=== PATIENT | male | born 1990 | race Hispanic/Latino ===

== ENCOUNTER 2020-12-16 12:55 | Emergency (ER) | payer OTHER ==
--- NOTE | 2020-12-16 15:09 | RAD REPORT ---
EXAM DESCRIPTION: RAD - Knee Right 3 View - 12/16/2020 2:45 pm CLINICAL HISTORY: PAIN, fall with persistent knee pain COMPARISON: None FINDINGS: No fracture, dislocation or periosteal reaction.No joint effusion seen. No joint space woody rowing. Bones are osteopenic. Degenerative change seen along the articular margin of the patella. No suspicious soft tissue finding. IMPRESSION: Osteopenia of the right knee with no acute bone or joint finding. Clinical concerns for internal derangement or occult bony injury could be further assessed with MR im aging.
--- NOTE | 2020-12-16 15:11 | RAD REPORT ---
EXAM DESCRIPTION: RAD - Hip Right 2 View - 12/16/2020 2:45 pm CLINICAL HISTORY: PAIN, fall COMPARISON: No comparisons FINDINGS: AP and frog-leg views of the right hip were obtained. Partially imaged right nadya pelvis is osteopenic for the patient's age. No fracture identified. Fracture is present through the base of the right femoral neck with involvement of the intertrochante benson region. Fracture at the superior aspect of the greater trochanter is also suspected. No dislocati on of the femoral head. Lesser trochanter remains attached to the femur. Femur is osteopenic for age but no pathologic change seen. IMPRESSION: Right femur fracture as detailed.
[2020-12-16 16:21] LABS: Protime INR 1.19
--- NOTE | 2020-12-16 16:27 | RAD REPORT ---
EXAM DESCRIPTION: CT - CTHCSPWOC - 12/16/2020 4:07 pm CLINICAL HISTORY: Fall COMPARISON: <Comparisons> TECHNIQUE: Axial 5 mm thick images of the head were obtained. Axial 2 mm thick images of the cervic al spine were obtained with sagittal and coronal reconstruction images generated and reviewed. All CT scans are performed using dose optimization technique as appropriate and may include automated exposure control or mA/KV adjustment according to patient size. FINDINGS: Exam has significant motion degradation limitation. No intracranial hemorrhage is identifi able. No focal mass effect, edema or shift of midline structures. Ventriculomegaly is present. There is no baseline for the patient. Transependymal migration of CSF not suspected. Ventriculomegaly is pr esumed to be chronic. Mastoid air cells and paranasal sinuses are clear. No globe or orbit abnormalit y seen. Cervical body height and alignment are normal. Positioning of the C1 ring relative to the occipital c ondyles body of C2 within range of normal. 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 No disk space narrowing. No fracture or acute bony abnormality. Central canal detail is inherently limited. No paraspinal mass or hematoma. IMPRESSION: Motion degraded study shows no evidence for intracranial hemorrhage mass or acute findin g. Ventriculomegaly is present believed to be chronic. There are no baseline studies. Negative CT cervical spine examination for acute or significant finding.
[2020-12-16 16:31] LABS: ALT/SGPT 14 U/L (12-78); AST/SGOT 15 U/L (15-37); Albumin 3.9 g/dL (3.4-5.0); Alkaline Phosphatase 119 U/L (45-117); BUN Blood Urea Nitrogen 25 mg/dL (7-18); Bicarbonate 28 mmol/L (21-32); Bilirubin Total 0.3 mg/dL (0.2-1.0); Glucose Level 106 mg/dL (74-106); Potassium 4.4 mmol/L (3.5-5.1); Protein, Total 8.7 g/dL (6.4-8.2); Sodium Level 142 mmol/L (136-145)
[2020-12-16 16:36] LABS: Absolute Lymphocytes (CBC) 1.2 K/uL (0.7-4.9); Basophils % 0.3 % (0-1.3); Hematocrit 35.5 % (39.6-49.0); Lymphocytes % 14.5 % (15.3-44.8); MPV 8.5 fL (7.6-11.3)
--- NOTE | 2020-12-16 16:47 | ER ---
Nurse's Notes [facility] Name: Lazaro Babcock Age: 30 yrs Sex: Male : 1990 Arrival Date: 12/16/2020 Time: 12:58 Bed 14 Private MD: Diagnosis: Right hip fracture Presentation: 12/16 13:09 Chief complaint: Patient states: Fell about 4 days ago. RUE pain since and cant move ll1 well. L leg slight trauma. No fever. Mom noticed R leg feels hotter. No fever. Coronavirus screen: Client denies travel out of the [place] in the last 14 days. At this time, the client does not indicate any symptoms associated with coronavirus-19. Ebola Screen: Patient denies travel to an Ebola-affected area in the 21 days before illness onset. Initial Sepsis Screen: Does the patient meet any 2 criteria? No. Patient's initial sepsis screen is negative. Does the patient have a suspected source of infection? Yes: Bone or joint infection. Risk Assessment: Do you want to hurt yourself or someone else? Patient reports no desire to harm self or others. Onset of symptoms was December 13, 2020. 13:09 Method Of Arrival: Wheelchair ll1 13:09 Acuity: SHERYL 3 ll1 Historical: - Allergies: 13:12 No Known Allergies; ll1 - PMHx: 13:12 epilepsy; Bipolar disorder; ll1 17:06 mental retardation; sv - PSHx: 13:12 Hernia repair; ll1 - Immunization history:: Flu vaccine is not up to date. - Social history:: Smoking status: Patient denies any tobacco usage or history of. Screenin:27 Abuse screen: Denies threats or abuse. Nutritional screening: No deficits noted. vg1 Tuberculosis screening: No symptoms or risk factors identified. Fall Risk Fall in past 12 months (25 points). No secondary diagnosis (0 pts). No IV (0 pts). Ambulatory Aid- None/Bed Rest/Nurse Assist (0 pts). Gait- Impaired (20 pts.). Mental Status- Oriented to own ability (0 pts). Total Moody Fall Scale indicates High Risk Score (45 or more points). Fall prevention measures have been instituted. Side Rails Up X 2 Placed Close to Nursing Station Family Present and informed to notify staff if the need to leave the bedside. Assessment: 13:25 General: Appears in no apparent distress. comfortable. General: Behavior is anxious. vg1 Pain: Complains of pain in right knee Noted to be guarding. Neuro: Level of Consciousness is awake, alert, Oriented to person. Cardiovascular: Patient's skin is warm and dry. Respiratory: Airway is patent Respiratory effort is even, unlabored. GI: No signs and/or symptoms were reported involving the gastrointestinal system. : No signs and/or symptoms were reported regarding the genitourinary system. EENT: No signs and/or symptoms were reported regarding the EENT system. Derm: Skin is intact, is healthy with good turgor. Musculoskeletal: Range of motion: limited in right knee. 14:08 Reassessment: Patient appears in no apparent distress at this time. No changes from vg1 previously documented assessment. Patient and/or family updated on plan of care and expected duration. Pain level reassessed. Patient is alert, oriented x 3, equal unlabored respirations, skin warm/dry/pink. 15:57 Reassessment: Patient appears in no apparent distress at this time. No changes from vg1 previously documented assessment. Patient and/or family updated on plan of care and expected duration. Pain level reassessed. Patient is alert, oriented x 3, equal unlabored respirations, skin warm/dry/pink. 17:46 Reassessment: Patient appears in no apparent distress at this time. No changes from vg1 previously documented assessment. Patient and/or family updated on plan of care and expected duration. Pain level reassessed. Patient is alert, oriented x 3, equal unlabored respirations, skin warm/dry/pink. Cardiovascular: Capillary refill < 3 seconds in bilateral toes. Vital Signs: 13:09 BP 132 / 104; Pulse 88; Resp 16; Temp 97.2; Pulse Ox 95% ; Weight 52.62 kg; Pain 8/10; ll1 14:08 BP 107 / 72; vg1 17:37 BP 99 / 59; vg1 Roopa Coma Score: 17:46 Eye Response: spontaneous(4). Verbal Response: oriented(5). Motor Response: obeys vg1 commands(6). Total: 15. ED Course: 12:58 Patient arrived in ED. ds1 13:11 Triage completed. ll1 13:12 Arm band placed on Patient placed in an exam room, on a stretcher. ll1 13:13 Efraín Alexandre NP is PHCP. pm1 13:13 Alfonso Soliz MD is Attending Physician. pm1 13:19 Aileen Arvizu, RN is Primary Nurse. vg1 13:27 Patient has correct armband on for positive identification. Bed in low position. Call vg1 light in reach. Side rails up X2. Adult w/ patient. 13:58 X-ray(s) taken. sv 14:46 Hip Right 2 View XRAY In Process Unspecified. EDMS 14:46 Knee Right 3 View XRAY In Process Unspecified. EDMS 15:57 Initial lab(s) drawn, by la, sent to lab. Inserted saline lock: 20 gauge in left vg1 antecubital area, using aseptic technique. Blood collected. 15:57 COVID swab sent to lab. vg1 16:07 CT Head C Spine In Process Unspecified. EDMS 17:45 No provider procedures requiring assistance completed. Patient transferred, IV remains vg1 in place. Administered Medications: 17:37 Drug: NS 0.9% 1000 ml Route: IV; Rate: 125 ml/hr; Site: left antecubital; vg1 18:25 Follow up: IV Status: Infusion continued upon transfer vg1 Outcome: 16:46 ER care complete, transfer ordered by . pm1 17:46 Transferred to [facility]. vg1 17:46 Condition: stable 17:46 Instructed on the need for transfer. 18:25 Patient left the ED. vg1 Signatures: Dispatcher [employer] EDMS Carlie Ramsey RN RN Bri Jones ds1 Efraín Alexandre NP COATING TECHNICIAN pm1 Aileen Arvizu RN RN vg1 Drew Swift RN RN ll1 Corrections: (The following items were deleted from the chart) 17:07 13:12 PMHx: mental retard; ll1 sv
--- NOTE | 2020-12-16 16:47 | EDPHYS ---
Physician Documentation [facility] Name: Lazaro Babcock Age: 30 yrs Sex: Male : 1990 Arrival Date: 12/16/2020 Time: 12:58 Bed 14 Private MD: ED Physician Alfonso Soliz HPI: 12/16 13:28 This 30 yrs old Male presents to ER via Wheelchair with complaints of Leg Pain, Fall pm1 Injury. 13:28 The patient presents with pain, that is acute. The complaints affect the right leg. pm1 Context: The problem was sustained at home, resulted from the patient falling, prior to two weeks ago patient was walking by himself. he had a fall and was evaluated at [facility]. Discharged home with ibuprofen. After that fall he was walking with assist from family. He fell again 4 days ago and has not wanted to bear weight with his right leg since then. He standing up from the couch, lost his balance and then fell over to the right side. Family thinks that it might be his right knee or right lower thigh since there was a bruise there previously. Onset: The symptoms/episode began/occurred 4 day(s) ago. Historical: - Allergies: 13:12 No Known Allergies; ll1 - PMHx: 13:12 epilepsy; Bipolar disorder; ll1 17:06 mental retardation; sv - PSHx: 13:12 Hernia repair; ll1 - Immunization history:: Flu vaccine is not up to date. - Social history:: Smoking status: Patient denies any tobacco usage or history of. ROS: 13:32 Constitutional: Negative for fever, chills, and weight loss, Eyes: Negative for injury, pm1 pain, redness, and discharge, ENT: Negative for injury, pain, and discharge, Neck: Negative for injury, pain, and swelling, Cardiovascular: Negative for chest pain, palpitations, and edema, Respiratory: Negative for shortness of breath, cough, wheezing, and pleuritic chest pain, Abdomen/GI: Negative for abdominal pain, nausea, vomiting, diarrhea, and constipation, Back: Negative for injury and pain. 13:32 Skin: Negative for injury, rash, and discoloration, Neuro: Negative for headache, weakness, numbness, tingling, and seizure. 13:32 MS/extremity: Positive for pain, of the right knee, Not applying weight to right leg. 13:32 Unable to obtain ROS due to baseline mental retardation. Information obtained from mother and brother. Exam: 13:32 Constitutional: This is a well developed, well nourished patient who is awake, alert, pm1 and in no acute distress. Head/Face: Normocephalic, atraumatic. 13:32 Chest/axilla: Normal chest wall appearance and motion. Nontender with no deformity. No lesions are appreciated. 13:32 Back: No spinal tenderness. No costovertebral tenderness Skin: Warm, dry with normal turgor. Normal color with no rashes, no lesions, and no evidence of cellulitis. 13:32 Eyes: Exam is negative for acute changes, Periorbital structures: appear normal, Pupils: no acute changes, Extraocular movements: intact throughout, Conjunctiva: normal, Sclera: no appreciated abnormality. 13:32 ENT: Mouth: Lips: normal, Oral mucosa: normal, pink and intact, moist. 13:32 Neck: External neck: is normal, no swelling, no tenderness, ROM/movement: no acute changes. 13:32 Cardiovascular: Rate: normal, Rhythm: regular, Pulses: no pulse deficits are appreciated, Edema: is not appreciated. 13:32 Respiratory: Exam negative for acute changes, respiratory distress, shortness of breath, Breath sounds: are clear throughout. 13:32 Abdomen/GI: Inspection: abdomen appears normal, Palpation: abdomen is soft and non-tender, in all quadrants. 13:32 Musculoskeletal/extremity: Extremities: grossly normal except: noted in the tenderness to right hip and right knee: patient does not want to extend his right leg, Circulation is intact in all extremities. Sensation intact. 13:32 Neuro: Orientation: baseline per mother and brother in room, Motor: moves all fours. Vital Signs: 13:09 BP 132 / 104; Pulse 88; Resp 16; Temp 97.2; Pulse Ox 95% ; Weight 52.62 kg; Pain 8/10; ll1 14:08 BP 107 / 72; vg1 17:37 BP 99 / 59; vg1 Roopa Coma Score: 17:46 Eye Response: spontaneous(4). Verbal Response: oriented(5). Motor Response: obeys vg1 commands(6). Total: 15. MDM: 13:15 Patient medically screened. pm1 15:24 Data reviewed: vital signs. Data interpreted: Pulse oximetry: on room air is 95 %. pm1 Interpretation:. 15:25 Counseling: I had a detailed discussion with the patient and/or guardian regarding: the pm1 historical points, exam findings, and any diagnostic results supporting the discharge/admit diagnosis, radiology results, the need to transfer to another facility, [facility] does not immediately have the required specialist, No orthopedics available. 17:13 ED course: Accepted without report by Kedar KURTZ. pm1 17:14 ED course: Last PO intake for patient at 1000 today. pm1 12/16 15:26 Order name: CBC with Diff; Complete Time: 16:40 pm1 12/16 15:26 Order name: CMP; Complete Time: 16:40 pm1 12/16 15:28 Order name: Valproic Acid (depakote) pm1 12/16 15:28 Order name: Tegretol Level pm1 12/16 15:30 Order name: Valproic Acid (Depakene) Level; Complete Time: 16:40 EDMS 12/16 15:30 Order name: Carbamazepine (Tegretol) Level; Complete Time: 16:40 EDMS 12/16 13:22 Order name: Hip Right 2 View XRAY; Complete Time: 15:24 pm1 12/16 13:22 Order name: Knee Right 3 View XRAY; Complete Time: 15:24 pm1 12/16 15:33 Order name: PT-INR; Complete Time: 16:40 pm1 12/16 15:36 Order name: CT Head C Spine; Complete Time: 16:40 pm1 12/16 15:37 Order name: COVID-19 : Document "Date of Symptom Onset" if Symptomatic. pm1 12/16 18:21 Order name: SARS-COV-2 RT PCR EDMS 12/16 15:26 Order name: IV Saline Lock; Complete Time: 15:57 pm1 12/16 17:14 Order name: NPO; Complete Time: 17:22 pm1 Administered Medications: 17:37 Drug: NS 0.9% 1000 ml Route: IV; Rate: 125 ml/hr; Site: left antecubital; 1 18:25 Follow up: IV Status: Infusion continued upon transfer vg1 Disposition: 18:54 Co-signature as Attending Physician, Alfonso Soliz MD. rn Disposition: 12/16/20 16:46 Transfer ordered to [facility]. Diagnosis is Right hip fracture. - Reason for transfer: Specialty. - Accepting physician is Kedar KURTZ. - Condition is Stable. - Problem is new. - Symptoms have improved. Signatures: Dispatcher [employer] EDNE Carlie Ramsey, RN RN Alfonso Navarro MD MD rn Efraín Alexandre, FINANCE VICE PRESIDENT FINANCE VICE PRESIDENT pm1 Aileen Arvizu RN RN vg1 Drew Swift RN RN ll1 Corrections: (The following items were deleted from the chart) 17:07 13:12 PMHx: mental retard; ll1 sv 17:30 15:37 CORONAVIRUS ordered. EDNE EDMS 17:49 16:46 12/16/2020 16:46 Transfer ordered to [facility]. Diagnosis is Right pm1 hip fracture. Reason for transfer: Specialty. Accepting physician is . Condition is Stable. Problem is new. Symptoms have improved. pm1 18:25 17:49 12/16/2020 16:46 Transfer ordered to [facility]. Diagnosis is Right vg1 hip fracture. Reason for transfer: Specialty. Accepting physician is Kedar KURTZ. Condition is Stable. Problem is new. Symptoms have improved. pm1
[2020-12-16] MEDS ORDERED: NA CHLORIDE 0.9% 1,000 ML ONE (17:45)
[2020-12-16 18:34] VITALS: TEMP 97.2; O2SAT 95
[2020-12-16 18:36] VITALS: BP 99/59
== END 2020-12-16 18:25 | disposition short-term general hospital (02) ==
LOC: ER 12:55
DX: S72.001A Fracture of unspecified part of neck of right femur, initial encounter for closed fracture (principal); F79 Unspecified intellectual disabilities; W19.XXXA Unspecified fall, initial encounter; Y93.01 Activity, walking, marching and hiking; Z20.822 Contact with and (suspected) exposure to COVID-19
CPT/HCPCS: 85025; 36415; 80156; 85610; 80164; 80053; 70450; 72125; 73502; 73562; 96360; 99285; U0003; J7030

== ENCOUNTER 2024-08-07 10:12 | Emergency (ER) | payer OTHER ==
--- NOTE | 2024-08-07 11:27 | RAD REPORT ---
EXAMINATION: XR PELVIS CLINICAL INDICATION: fall;Blunt trauma TECHNIQUE: AP Pelvis examination was obtained. COMPARISON: No prior exam. FINDINGS: Hardware is present proximal right femur. Diffuse osteopenia. No acute fracture seen. Signi ficant stool burden in the rectum.
--- NOTE | 2024-08-07 11:28 | RAD REPORT ---
EXAMINATION: XR LEFT FEMUR CLINICAL INDICATION: . PAIN TECHNIQUE: Multiple views of the left femur were obtained. COMPARISON: No prior exam. FINDINGS: Diffuse osteopenia seen. No acute fracture or dislocation seen.
--- NOTE | 2024-08-07 11:33 | ER ---
Nurse's Notes [facility] Name: Lazaro Babcock Age: 34 yrs Sex: Male : 1990 Arrival Date: 08/07/2024 Time: 10:12 Bed 7 Private MD: Diagnosis: Contusion of left hip;Contusion of left thigh Presentation: 08/07 10:29 Chief complaint: Parent and/or Guardian states: Left leg pain s/p fall. per brother, pt cm10 unable to bear weight on left leg. Coronavirus screen: Client denies travel out of the [place] in the last 14 days. Ebola Screen: Patient denies travel to an Ebola-affected area in the 21 days before illness onset. Initial Sepsis Screen: Does the patient meet any 2 criteria? No. Patient's initial sepsis screen is negative. Does the patient have a suspected source of infection? No. Patient's initial sepsis screen is negative. Risk Assessment: Do you want to hurt yourself or someone else? Patient reports no desire to harm self or others. Onset of symptoms was August 07, 2024. 10:29 Method Of Arrival: Wheelchair cm10 10:29 Acuity: SHERYL 4 cm10 10:39 Care prior to arrival: None. Mechanism of Injury: Fall. Trauma event details: Injury ll1 occurred in the [facility]. Triage Assessment: 10:32 General: Appears in no apparent distress. uncomfortable, Behavior is calm, cooperative. cm10 Neuro: No deficits noted. Level of Consciousness is awake, alert. Respiratory: No deficits noted. Airway is patent Respiratory effort is even, unlabored, Respiratory pattern is regular, symmetrical. Trauma Activation: Not Applicable Physician: ED Physician; Name: ; Notified At: ; Arrived At: Physician: General Surgeon; Name: ; Notified At: ; Arrived At: Physician: Radiology; Name: ; Notified At: ; Arrived At: Physician: Respiratory; Name: ; Notified At: ; Arrived At: Physician: Lab; Name: ; Notified At: ; Arrived At: Historical: - Allergies: 10:30 No Known Allergies; cm10 - Home Meds: 10:30 Tegretol Oral [Active]; Ativan Oral [Active]; Depakote Oral [Active]; Risperdal Oral cm10 [Active]; - PMHx: 10:30 Bipolar disorder; epilepsy; mental retardation; cm10 - PSHx: 10:30 inguinal hernia; Leg sx; cm10 - Immunization history:: Adult Immunizations unknown. - Infectious Disease History:: Denies. - Immunization history: Last tetanus immunization: - up to date. - Family history:: not pertinent. - Social history:: Smoking status: Patient denies any tobacco usage or history of. - Hospitalizations: : No recent hospitalization is reported. Screenin:38 [facility] ED Fall Risk Assessment (Adult) History of falling in the last 3 months, ll1 including since admission Yes- single mechanical fall (1 pt) Confusion or Disorientation No (0 pts) Intoxicated or Sedated No (0 pts) Impaired Gait Yes (1 pt) Mobility Assist Device Used Yes (1 pt) Altered Elimination Yes (1 pt) Score/Fall Risk Level 3 or more points = High Risk Maintained a safe environment, Hourly rounding (assess needs \T\ fall precautionary measures) done. Abuse screen: Denies threats or abuse. Nutritional screening: No deficits noted. Tuberculosis screening: No symptoms or risk factors identified. Primary Survey: 10:38 NO uncontrolled hemorrhage observed. A: The client is awake and alert. The airway is ll1 patent. Breathing/Chest: Spontaneous respiratory effort, equal unlabored respirations, breath sounds clear bilaterally, regular pattern, symmetrical chest rise and fall. Circulation: No external hemorrhage present. Regular and strong central pulse, skin warm/dry/normal color. Disability Client is alert. Exposure/Environment: There is no evidence of uncontrolled external bleeding. 11:33 Reassessment Breathing: Spontaneous respiratory effort, equal unlabored respirations, ll1 breath sounds clear bilaterally, regular pattern with symmetrical chest rise and fall. Assessment: 10:38 General: Appears in no apparent distress. Behavior is calm, cooperative, appropriate ll1 for age. Pain: Complains of pain in left leg. Musculoskeletal: Reports pain in left leg. 11:33 Reassessment: No changes from previously documented assessment. Patient and/or family ll1 updated on plan of care and expected duration. Pain level reassessed. Patient is alert, oriented x 3, equal unlabored respirations, skin warm/dry/pink. Vital Signs: 10:29 BP 89 / 65; Pulse 85; Resp 17; Temp 98.2(A); Pulse Ox 99% on R/A; Weight 52.16 kg; cm10 Height 5 ft. 6 in. ; 10:40 BP 97 / 67; Pulse 82; Resp 18; Pulse Ox 100% on R/A; ll1 11:30 BP 96 / 69; Pulse 82; Resp 18; Pulse Ox 100% ; ll1 10:29 Body Mass Index 18.56 (52.16 kg, 167.64 cm) cm10 [place] Coma Score: 10:39 Eye Response: spontaneous(4). Motor Response: obeys commands(6). Verbal Response: ll1 oriented(5). Total: 15. Trauma Score (Adult): 10:39 Eye Response: spontaneous(1); Verbal Response: oriented(1); Motor Response: obeys ll1 commands(2); Systolic BP: > 89 mm Hg(4); Respiratory Rate: 10 to 29 per min(4); [place] Score: 15; Trauma Score: 12 ED Course: 10:17 Patient arrived in ED. al6 10:18 Alfonso oSliz MD is Attending Physician. rn 10:30 Triage completed. cm10 10:32 Arm band placed on right wrist. Patient placed in an exam room, on pulse oximetry. cm10 10:35 Drew Swift RN is Primary Nurse. ll1 10:39 Patient has correct armband on for positive identification. Bed in low position. Call ll1 light in reach. Provided Education on: ER procedures and process. Client placed on continuous cardiac and pulse oximetry monitoring. NIBP monitoring applied. 10:40 Patient maintains SpO2 saturation greater than 95% on room air. ll1 11:24 XRAY Femur LEFT In Process Unspecified. EDMS 11:24 XRAY Pelvis In Process Unspecified. EDMS 11:30 Thermoregulation: n/a. ll1 11:32 Alfonso Soliz MD is Referral Physician. rn 11:32 Referral Physician role handed off by Alfonso Soliz MD rn 11:33 No provider procedures requiring assistance completed. Patient did not have IV access ll1 during this emergency room visit. Administered Medications: No medications were administered Medication: 10:40 VIS not applicable for this client. ll1 Intake: 11:56 PO: 0ml; Total: 0ml. ll1 Output: 11:56 Urine: 0ml; Total: 0ml. ll1 Outcome: 10:40 Patient's length of stay was not longer than 2 hours. [facility] 11: Discharge ordered by . rn : Discharged to home via wheelchair, [facility] : Condition: stable :33 Discharge instructions given to family, Instructed on discharge instructions, follow up and referral plans. Demonstrated understanding of instructions, follow-up care, 11:50 Patient left the ED. 1 Signatures: Dispatcher [employer] EDAlfonso Khanna MD MD rn Lewis, Lynsay, RN RN 1 Ila Garcia RN RN 10 Stacy Traore [email or web address]
--- NOTE | 2024-08-07 11:34 | EDPHYS ---
Physician Documentation [facility] Name: Lazaro Babcock Age: 34 yrs Sex: Male : 1990 Arrival Date: 08/07/2024 Time: 10:12 Bed 7 Private MD: ED Physician Alfonso Soliz HPI: 08/07 10:29 This 34 yrs old Male presents to ER via Unassigned with complaints of Fall rn Injury. 10:29 Details of fall: The patient fell from an upright position. Onset: The symptoms/episode rn began/occurred this morning. Associated injuries: The patient sustained Left hip and thigh. Severity of symptoms: At their worst the symptoms were mild, in the emergency department the symptoms are unchanged. The patient has experienced a previous episode. Patient brought in by family this morning following a fall. Patient had a seizure while standing and fell onto his left side. Family reports he seems to have only injured the left hip and is limping when he walks. No other injuries noted. No head injury. No neck pain or back pain. Is still using both upper extremities and right leg normally. This has happened once before and patient fell and broke the right femur so family brought him in to make sure that the left femur or hip has not broken.. Historical: - Allergies: 10:30 No Known Allergies; cm10 - Home Meds: 10:30 Tegretol Oral [Active]; Ativan Oral [Active]; Depakote Oral [Active]; Risperdal Oral cm10 [Active]; - PMHx: 10:30 Bipolar disorder; epilepsy; mental retardation; cm10 - PSHx: 10:30 inguinal hernia; Leg sx; cm10 - Immunization history:: Adult Immunizations unknown. - Infectious Disease History:: Denies. - Immunization history: Last tetanus immunization: - up to date. - Family history:: not pertinent. - Social history:: Smoking status: Patient denies any tobacco usage or history of. - Hospitalizations: : No recent hospitalization is reported. ROS: 10:29 Unable to obtain ROS due to Nonverbal patient, rn Exam: 10:29 Constitutional: This is a well developed, well nourished patient who is awake, alert, rn and in no acute distress. Head/Face: Normocephalic, atraumatic. Neck: No neck tenderness or swelling Chest/axilla: No rib tenderness or crepitus noted Cardiovascular: Regular rate and rhythm. No pulse deficits. Respiratory: No increased work of breathing, no retractions or nasal flaring. Abdomen/GI: Soft, non-tender Back: No back tenderness Skin: Warm, dry MS/ Extremity: Pulses equal, no cyanosis. Neurovascular intact. Full, normal range of motion. No signs of discomfort or pain with range of motion of either lower extremity or upper extremity. No focal bony tenderness noted or ecchymosis or discoloration. Neuro: Awake and alert Vital Signs: 10:29 BP 89 / 65; Pulse 85; Resp 17; Temp 98.2(A); Pulse Ox 99% on R/A; Weight 52.16 kg; cm10 Height 5 ft. 6 in. ; 10:40 BP 97 / 67; Pulse 82; Resp 18; Pulse Ox 100% on R/A; ll1 11:30 BP 96 / 69; Pulse 82; Resp 18; Pulse Ox 100% ; ll1 10:29 Body Mass Index 18.56 (52.16 kg, 167.64 cm) cm10 Scalf Coma Score: 10:39 Eye Response: spontaneous(4). Motor Response: obeys commands(6). Verbal Response: ll1 oriented(5). Total: 15. Trauma Score (Adult): 10:39 Eye Response: spontaneous(1); Verbal Response: oriented(1); Motor Response: obeys ll1 commands(2); Systolic BP: > 89 mm Hg(4); Respiratory Rate: 10 to 29 per min(4); Roopa Score: 15; Trauma Score: 12 MDM: 10:18 Medical Screening Exam initiated rn 10:32 ED course: Family reports his normal blood pressure is normally 90 systolic and family rn denies any other acute issues at this time.. 11:31 Differential diagnosis: contusion, fracture, sprain, strain. Data reviewed: vital rn signs, nurses notes, radiologic studies, plain films, and as a result, I will discharge patient. Counseling: I had a detailed discussion with the patient and/or guardian regarding the historical points, exam findings, and any diagnostic results supporting the discharge/admit diagnosis, radiology results, the need for outpatient follow up, to return to the emergency department if symptoms worsen or persist or if there are any questions or concerns that arise at home. Special discussion: I discussed with the patient/guardian in detail that at this point there is no indication for admission to the hospital. It is understood, however, that if the symptoms persist or worsen the patient needs to return immediately for re-evaluation. ED course: No acute fracture or dislocation on x-ray images per my interpretation. Results discussed and given to family. Will discharge home with return precautions. Told if pain does not improve after 7 to 10 days will need either repeat x-rays for occult fracture or CT.. 08/07 10:28 Order name: XRAY Femur LEFT; Complete Time: : rn 08/07 10:28 Order name: XRAY Pelvis; Complete Time: rn Administered Medications: No medications were administered Disposition Summary: 08/07/24 11:33 Discharge Ordered Notes: Location: Home rn Problem: new rn Symptoms: have improved rn Condition: Stable rn Diagnosis - Contusion of left hip rn - Contusion of left thigh rn Followup: rn - With: Private Physician - When: As needed - Reason: Recheck today's complaints, Re-evaluation by your physician Discharge Instructions: - Discharge Summary Sheet rn - Hip Pain rn - Hip Sprain rn Forms: - Medication Reconciliation Form rn - Antibiotic rn camp - Prescription Opioid Use rn - Patient Portal Instructions rn - Leadership Thank You Letter rn Signatures: Dispatcher [employer] Alfonso Phillips MD MD rn Lewis, Lynsay RN RN ll1 Ila Garcia RN RN cm10
[2024-08-07 11:54] VITALS: TEMP 98.2
[2024-08-07 11:55] VITALS: BP 97/67; O2SAT 100
== END 2024-08-07 11:50 | disposition home or self-care (01) ==
LOC: ER 10:12
DX: S70.02XA Contusion of left hip, initial encounter (principal); S70.12XA Contusion of left thigh, initial encounter; W18.30XA Fall on same level, unspecified, initial encounter; F79 Unspecified intellectual disabilities
CPT/HCPCS: 72170; 99284

== ENCOUNTER 2024-08-09 14:17 | Inpatient (IN) | payer OTHER ==
--- NOTE | 2024-08-09 14:51 | RAD REPORT ---
EXAM: CT PELVIS WITHOUT CONTRAST HISTORY: PAIN COMPARISON: 08/07/2024 TECHNIQUE: Multiple contiguous axial images were obtained and a CT of the pelvis with IV contrast. Sa gittal and coronal reformats were performed. One or more of the following dose reduction techniques were used: Automated exposure control, adjustment of the mA and/or kV according to patient size, and/ or iterative reconstruction. FINDINGS: Slightly impacted subcapital fracture proximal left femur is seen with subtle sclerotic jenae e. Hardware is present proximal right femur.. Symmetric bilateral sacroiliac joints. Diffuse osteopenia. Marked stool impacted in the rectum.. The soft tissues surrounding the pelvis are unremarkable. IMPRESSION: Subcapital fracture proximal left femur with mild impaction. Significant osteopenia. Marked fecal impaction in the rectum.
--- NOTE | 2024-08-09 15:10 | RAD REPORT ---
EXAMINATION: XR LEFT FOOT CLINICAL INDICATION: PAIN TECHNIQUE: Multiple projections of the left foot were obtained. COMPARISON: No prior exam. FINDINGS: Diffuse osteopenia. Overlap of the first and second toes, limiting assessment. No fracture or dislocation.
--- NOTE | 2024-08-09 16:07 | ER ---
Nurse's Notes [facility] Name: Lazaro Babcock Age: 34 yrs Sex: Male : 1990 Arrival Date: 08/09/2024 Time: 14:17 Bed 12 Private MD: Diagnosis: Subcapital fracture left femur Presentation: 08/09 14:25 Chief complaint: Patient states: Pain to left foot. Coronavirus screen: At this time, ld1 the client does not indicate any symptoms associated with coronavirus-19. Ebola Screen: No symptoms or risks identified at this time. Risk Assessment: Do you want to hurt yourself or someone else? Patient reports no desire to harm self or others. Onset of symptoms was August 09, 2024. 14:25 Method Of Arrival: Wheelchair ld1 14:25 Acuity: SHERYL 4 ld1 15:21 Initial Sepsis Screen: Does the patient meet any 2 criteria? No. Patient's initial me1 sepsis screen is negative. Does the patient have a suspected source of infection? No. Patient's initial sepsis screen is negative. Triage Assessment: 14:25 General: Appears in no apparent distress. comfortable, Behavior is calm, cooperative, ld1 appropriate for age. Pain: Complains of pain in left foot Pain does not radiate. Pain currently is 7 out of 10 on a pain scale. Quality of pain is described as throbbing. EENT: No signs and/or symptoms were reported regarding the EENT system. Neuro: Level of Consciousness is awake, Oriented to Appropriate for age. Cardiovascular: Capillary refill < 3 seconds Patient's skin is warm and dry. Respiratory: Airway is patent Respiratory effort is even, unlabored. GI: Abdomen is flat, non-distended. : No signs and/or symptoms were reported regarding the genitourinary system. Derm: No signs and/or symptoms reported regarding the dermatologic system. Musculoskeletal: No signs and/or symptoms reported regarding the musculoskeletal system. Historical: - Allergies: 14:24 No Known Allergies; ld1 - PMHx: 14:24 Bipolar disorder; mental retardation; epilepsy; ld1 - PSHx: 14:24 inguinal hernia; Leg sx; ld1 - Immunization history:: Adult Immunizations up to date. - Infectious Disease History:: Denies. - Social history:: Smoking status: Patient denies any tobacco usage or history of. Screenin:[facility] ED Fall Risk Assessment (Adult) History of falling in the last 3 months, me1 including since admission No falls in past 3 months (0 pts) Confusion or Disorientation No (0 pts) Intoxicated or Sedated No (0 pts) Impaired Gait No (0 pts) Mobility Assist Device Used No (0 pt) Altered Elimination No (0 pt) Score/Fall Risk Level 0 - 2 = Low Risk Maintained a safe environment, Provided non-skid footwear, Hourly rounding (assess needs \T\ fall precautionary measures) done. Abuse screen: Denies threats or abuse. Nutritional screening: No deficits noted. Tuberculosis screening: No symptoms or risk factors identified. Assessment: 15:23 General: Appears uncomfortable, well groomed, well nourished, Behavior is calm, me1 cooperative, Reports s/p fall recently and was seen here for left hip and leg pain that has gotten worse. Patient is nonverbal but wont bear weight on left leg at all now. Pain: Complains of pain in left leg and left foot Pain does not radiate. Pain currently is 7 out of 10 on a pain scale. Quality of pain is described as aching, Pain began gradually, Is continuous. Cardiovascular: Patient's skin is warm and dry. Respiratory: Airway is patent Respiratory effort is even, unlabored, Respiratory pattern is regular, symmetrical. GI: No signs and/or symptoms were reported involving the gastrointestinal system. : No signs and/or symptoms were reported regarding the genitourinary system. EENT: No signs and/or symptoms were reported regarding the EENT system. Derm: Skin is intact, is healthy with good turgor, Skin is pink, warm \T\ dry. Musculoskeletal: Reports pain in left leg and left foot. Injury Description: s/p fall days ago with pain to left leg/left foot that has worsened. 16:18 Neuro: Level of Consciousness is awake, alert, Oriented to UTO as patient is nonverbal. me1 Speech Nonverbal. Vital Signs: 14:30 BP 117 / 83; Pulse 82; Resp 17; Pulse Ox 97% on R/A; ld1 14:30 Temp 97.9(TE); Weight 67.13 kg; Height 5 ft. 8 in. ; ld1 16:30 BP 120 / 84; Pulse 80; Resp 16; Pulse Ox 97% ; me1 17:58 BP 118 / 76; Pulse 76; Resp 17; Pulse Ox 98% ; me1 14:30 Body Mass Index 22.50 (67.13 kg, 172.72 cm) ld1 ED Course: 14:19 Patient arrived in ED. ra3 14:22 [facility]all[facility]C [facility]. kb 14:22 Anival Evans DO is Attending Physician. kb 14:25 Arm band placed on right wrist. ld1 14:26 Triage completed. ld1 14:41 CT Pelvis wo Cont In Process Unspecified. EDMS 14:56 Foot Left 3 View XRAY In Process Unspecified. EDMS 15:17 Aster Bernard, RN is Primary Nurse. me1 15:23 Patient has correct armband on for positive identification. Call light in reach. Adult me1 w/ patient. Provided Education on: POC. Verbalized understanding.. 15:23 No provider procedures requiring assistance completed. me1 16:06 Elena Chew MD is Hospitalizing Provider. kb 16:08 BMP Sent. me1 16:09 CBC with Diff Sent. me1 16:09 Initial lab(s) drawn, by ks, sent to lab. Inserted. Inserted saline lock: 24 gauge in me1 right hand, using aseptic technique. 20:49 Patient admitted, IV remains in place. vc1 Administered Medications: No medications were administered Medication: 15:23 VIS not applicable for this client. me1 Outcome: 16:06 Decision to Hospitalize by Provider. kb 20:48 Admitted to Med/surg accompanied by tech, via wheelchair, room 202, vc1 20:48 Condition: good 20:48 Instructed on the need for admit, 20:49 Patient left the ED. vc1 Signatures: Dispatcher [employer] EDAZ Tressa Guallpa FNP-C FNP-Ckb Sims, Lauren, RN RN ld1 Daina Clark RN RN vc1 Aster Bernard RN RN me1 Elda Dubon ra3 Corrections: (The following items were deleted from the chart) 15:22 14:25 Chief complaint: Patient states: Pain to left foot ld1 me1 16:09 15:23 Patient did not have IV access during this emergency room visit. me1 me1 16:18 15:23 Neuro: Level of Consciousness is awake, alert, obeys commands, Oriented to me1 person, place, time, situation, Appropriate for age me1
--- NOTE | 2024-08-09 16:07 | EDPHYS ---
Physician Documentation [facility] Name: Lazaro Babcock Age: 34 yrs Sex: Male : 1990 Arrival Date: 08/09/2024 Time: 14:17 Bed 12 Private MD: ED Physician Anival Evans HPI: 08/09 15:53 This 34 yrs old Male presents to ER via Wheelchair with complaints of Fall kb Injury - Left leg pain. 15:53 Pt is a 34 year old male who presents for continued pain to left lower extremity after kb a fall 2 days ago. Mother states pt had a seizure that causing him to fall onto left side. Pt was seen here, had xrays done that were normal. states they were told to return for more imaging if symptoms didn't improve. Mother states pt has not been able to bear weight on left leg. States xrays were not obtained of his foot so it could be that he is having pain there since he won't put it down. . Historical: - Allergies: 14:24 No Known Allergies; ld1 - PMHx: 14:24 Bipolar disorder; mental retardation; epilepsy; ld1 - PSHx: 14:24 inguinal hernia; Leg sx; ld1 - Immunization history:: Adult Immunizations up to date. - Infectious Disease History:: Denies. - Social history:: Smoking status: Patient denies any tobacco usage or history of. ROS: 15:02 Constitutional: As per HPI kb Exam: 15:53 Constitutional: This is a well developed, well nourished patient who is awake, alert, kb and in no acute distress. Head/Face: Normocephalic, atraumatic. ENT: Moist Mucous membranes Cardiovascular: Regular rate Respiratory: Respirations even and unlabored. No increased work of breathing. Talking in full sentences MS/ Extremity: Pulses equal, no cyanosis. Neurovascular intact. 15:53 Neuro: Exam negative for acute changes, Vital Signs: 14:30 BP 117 / 83; Pulse 82; Resp 17; Pulse Ox 97% on R/A; ld1 14:30 Temp 97.9(TE); Weight 67.13 kg; Height 5 ft. 8 in. ; ld1 16:30 BP 120 / 84; Pulse 80; Resp 16; Pulse Ox 97% ; me1 17:58 BP 118 / 76; Pulse 76; Resp 17; Pulse Ox 98% ; me1 14:30 Body Mass Index 22.50 (67.13 kg, 172.72 cm) ld1 MDM: 14:22 Medical Screening Exam initiated kb 15:47 Differential diagnosis: contusion, fracture, strain. Data reviewed: vital signs, nurses kb notes. Consideration of Admission/Observation Patient was admitted/placed on observation. Escalation of care including admission/observation considered. Management of patient was discussed with the following: Lockstitcher: Dr Fox accepts pt for consultation. Wants NPO after midnight and admitted to hospitalist. Management of patient was discussed with the following: Hospitalist: Hospitalist team, pt accepted under Dr Chew. Historians other than the Patient: Parent: mother. Counseling: I had a detailed discussion with the patient and/or guardian regarding the historical points, exam findings, and any diagnostic results supporting the discharge/admit diagnosis, radiology results, the need for further work-up and treatment in the hospital. 08/09 15:43 Order name: CBC with Diff; Complete Time: 16:19 kb 08/09 15:43 Order name: BMP; Complete Time: 16:43 kb 08/09 17:06 Order name: Urinalysis w/ reflexes [facility] 08/09 17:06 Order name: CBC with Automated Diff [facility] 08/09 17:06 Order name: CBC with Automated Diff [facility] 08/09 17:06 Order name: Comprehensive Metabolic Panel [facility] 08/09 17:06 Order name: Comprehensive Metabolic Panel [facility] 08/09 17:06 Order name: Magnesium [facility] 08/09 17:06 Order name: Magnesium [facility] 08/09 14:28 Order name: Foot Left 3 View XRAY; Complete Time: 15:11 kb 08/09 14:28 Order name: CT Pelvis wo Cont; Complete Time: 14:58 kb 08/09 17:06 Order name: CONS Physician Consult [facility] 08/09 17:06 Order name: Physical Therapy Consult [facility] 08/09 17:06 Order name: Social Service Consult [facility] 08/09 15:43 Order name: IV Start; Complete Time: 16:08 kb Administered Medications: No medications were administered Disposition: 17:42 I was immediately available on-site in the Emergency Department for consultation in the [facility] care of the patient. Disposition Summary: 08/09/24 16:06 Hospitalization Ordered Notes: Hospitalization Status: Observation kb Provider: Elena Chew Location: Telemetry/MedSurg (observation) kb Condition: Stable kb Problem: new kb Symptoms: are unchanged kb Bed/Room Type: Standard Room Assignment: (08/09/24 19:32) vc1 Diagnosis - Subcapital fracture left femur kb Forms: - Medication Reconciliation Form kb - SBAR form kb - Leadership Thank You Letter kb Signatures: Dispatcher [employer] EDMS Tressa Guallpa FNP-C FNP-Anival Chou, DO ms3 Zoila Evans, RN RN ld1 Daina Clark RN RN vc1 Corrections: (The following items were deleted from the chart) 14:29 14:29 Foot Left 3 View+RAD.RAD.BRZ ordered. EDMS EDMS 14:29 14:29 Pelvis Wo Cont+CT.RAD.BRZ ordered. EDMS EDMS 19:32 16:06 kb vc1
[2024-08-09 16:14] LABS: Absolute Lymphocytes (CBC) 1.1 K/uL (0.7-4.9); Absolute Monocytes 0.6 K/uL (0.1-1.3); Absolute Neutrophil 4.3 K/uL (1.8-8.0); Basophils % 0.2 % (0-1.3); Eosinophils % 0.4 % (0-4.4); Hematocrit 37.4 % (39.6-49.0); Hemoglobin 12.9 g/dL (13.6-17.9); Lymphocytes % 17.6 % (15.3-44.8); MCH 34.5 pg (27.0-35.0); MCHC 34.3 g/dL (32.0-36.0); MCV 100.4 fL (80-100); Monocytes % 10.4 % (3.3-12.3); Neutrophils % 71.4 % (41.7-73.7); Nucleated Red Blood Cells % 0.2 % (0-0); Platelets 96 thou/uL (152-406); RBC Red Blood Cell Count 3.73 M/uL (4.33-5.43)
--- NOTE | 2024-08-09 16:31 | P.HP ---
Certification for Inpatient Patient admitted to: Observation Practitioner: I am a practitioner with admitting privileges, knowledge of patient current condition, hospital course, and medical plan of care. Services: Services provided to patient in accordance with Admission requirements found in Title 42 Section 412.3 of the Code of Federal Regulations Patient History Date of Service: 08/09/24 Reason for admission: Left hip fracture History of Present Illness: 34-year-old male with a past medical history of mental retardation, seizure disorder, bipolar, presents to the emergency room with left leg pain. Family is primary historian reports patient fell on Wednesday reported left leg pain that is progressively worse. patient ambulates independent as baseline. Unable to ambulate since Wednesday. Pain worse with range of motion. Family reports patient had a fall from a seizure on Wednesday landed on left hip, he had a toy car in his pocket. No reported shortness of breath, chest pain, abdominal pain, dizziness. Family reports fall in 2020 with a right hip fracture. Reports patient has a history of anxiety, he does not like hospitals. Family reported after last hip fracture repair, patient lost 10 pounds due to not eating. Family request patient discharge after surgery tomorrow with home health with PT. Patient has no DME at home. social services manager consulted for home health, at discharge. PT eval ordered for postop ambulation, DME. Dr. Fox consulted for Ortho for left hip fracture. Allergies No Known Drug Allergies Allergy (Verified 10/09/22 01:12) none Home Medications: Divalproex Sodium [Depakote] 1,500 mg PO BEDTIME 10/09/22 LORazepam [Ativan*] 1 tab PO PRN PRN 10/09/22 Risperidone [Risperdal] 1 tab PO BID 10/09/22 carBAMazepine [Tegretol*] 400 mg PO BID 10/09/22 Benzonatate [Tessalon Perle*] 100 mg PO Q6H PRN #20 cap 10/15/22 Doxycycline Hyclate 100 mg PO BID 7 Days #14 tab 10/15/22 - Past Medical/Surgical History Diabetic: No -: Mental Retardation, Non-Verbal -: Bipolar Disorder -: Epilepsy -: hypoxia -: Ataxia -: Inguinal Hernia Repair -: Right hip fx - 2020 Psychosocial/ Personal History: Patient lives at home with his mother. - Family History Father -: Hypertension - Social History Alcohol use: No CD- Drugs: No Caffeine use: No Review of Systems 10-point ROS is otherwise unremarkable Physical Examination - Physical Exam General: Alert, Oriented x3, Other (Aphasia from mental retardation) HEENT: Atraumatic, Normocephalic, Other (Large overbite) Neck: Supple, 2+ carotid pulse no bruit Respiratory: Clear to auscultation bilaterally, Normal air movement Cardiovascular: Normal pulses, Regular rate/rhythm, Normal S1 S2 Capillary refill: <2 Seconds Gastrointestinal: Normal bowel sounds, Soft and benign Musculoskeletal: Scoliosis, Other (Left lower extremity pain with range of motion) Integumentary: No breakdown, No significant lesion Neurological: Other (Mental retardation at baseline), Abnormal gait, Abnormal speech, Abnormal strength - Studies Laboratory Data (last 24 hrs) 08/09/24 16:07 WBC 6.10 Hgb 12.9 L Hct 37.4 L Plt Count 96 L Assessment and Plan - Problems (Diagnosis) (1) Closed subcapital fracture of left femur Current Visit: Yes Status: Acute (2) Fall Current Visit: Yes Status: Acute (3) Fecal impaction in rectum Current Visit: Yes Status: Acute (4) Epilepsy Current Visit: No Status: Chronic Qualifiers: Epilepsy type: unspecified Intractability: not intractable Status epilepticus: without status epilepticus Qualified Code(s): G40.909 - Epilepsy, unspecified, not intractable, without status epilepticus (5) Osteopenia Current Visit: Yes Status: Acute (6) Mentally disabled Current Visit: No Status: Chronic - Plan Left femur fracture Fall Admit to MedSurg Surgery to consult, n.p.o. after midnight As needed analgesics, PT eval in the a.m. social services manager for discharge planning for home health SCDs Foot x-ray diffuse osteopenia no fracture Pelvic CT Subcapital fracture proximal left femur with mild impaction. Significant osteopenia. Marked fecal impaction in the rectum. Constipation Stool softeners added Fleets enema ordered x 1 Epilepsy Mental retardation Resume appropriate home meds, fall precaution Seizure precautions Microcytic anemia Trend H&H Transfuse less than 8 Full code DVT per surgery Diet regular Disposition Home with home health Discharge Plan: Home - Advance Directives Does patient have a Living Will: No Does patient have a Durable POA for Healthcare: No - Code Status/Comfort Care Code Status: Full Code Critical Care: No Time Spent Managing Pts Care (In Minutes): 55
[2024-08-09 16:38] LABS: Anion Gap 9.6 mEq/L (5.0-15.0)
[2024-08-09 16:41] LABS: Potassium 4.6 mEq/L (3.5-5.1)
[2024-08-09] MEDS ORDERED: ONDANSETRON 4 MG/2 ML VIAL IV PRN (17:01)
[2024-08-09] MEDS ORDERED: MORPHINE 2 MG/ML SYR IV PRN (17:03)
[2024-08-09 21:00] VITALS: BMI 16.9
[2024-08-09] MEDS: FLEET ENEMA ADULT PR ONE ×2 (21:49→22:10)
[2024-08-09] MEDS: BISACODYL E.C. 5 MG TAB PO ONE (22:01)
[2024-08-09] MEDS: BISACODYL E.C. 5 MG TAB PO SCH (22:10)
[2024-08-10 05:23] LABS: Absolute Lymphocytes (CBC) 0.8 K/uL (0.7-4.9); Absolute Monocytes 0.5 K/uL (0.1-1.3); Absolute Neutrophil 2.6 K/uL (1.8-8.0); Basophils % 0.2 % (0-1.3); Eosinophils % 1.2 % (0-4.4); Hematocrit 34.3 % (39.6-49.0); Hemoglobin 11.8 g/dL (13.6-17.9); Lymphocytes % 19.9 % (15.3-44.8); MCH 34.6 pg (27.0-35.0); MCHC 34.4 g/dL (32.0-36.0); MCV 100.5 fL (80-100); MPV 10.1 fL (7.6-11.3); Monocytes % 12.8 % (3.3-12.3); Neutrophils % 65.9 % (41.7-73.7); Nucleated Red Blood Cells % 0.1 % (0-0); Platelets 91 thou/uL (152-406); RBC Red Blood Cell Count 3.41 M/uL (4.33-5.43)
[2024-08-10 05:47] LABS: AST/SGOT 12 U/L (15-37); Albumin 2.8 g/dL (3.4-5.0); Albumin/Globulin Ratio 0.7 (1.1-1.8); Alkaline Phosphatase 55 U/L (45-117); Anion Gap 8.6 mEq/L (5.0-15.0); BUN Blood Urea Nitrogen 21 mg/dL (7-18); Bicarbonate 25 mEq/L (21-32); Bilirubin Total 0.4 mg/dL (0.2-1.0); Globulin 4.3 g/dL (2.3-3.5); Glomerular Filtration Rate 132 ml/min (=/>90); Glucose Level 92 mg/dL (74-106); Magnesium 1.9 mg/dL (1.6-2.4); Phosphorus 4.6 mg/dL (2.5-4.9); Potassium 3.6 mEq/L (3.5-5.1); Protein, Total 7.1 g/dL (6.4-8.2); Sodium Level 139 mEq/L (136-145)
[2024-08-10 05:56] LABS: ALT/SGPT < 14 U/L (16-61)
[2024-08-10] MEDS: KCL 20 MEQ/100 mL IVPB 20 MEQ/100 ML BAG IV ONE (06:22)
[2024-08-10 07:45] LABS: Specific Gravity 1.024 (1.005-1.030); Sqamous Epithelial <5 /HPF (None Seen); Urine Bacteria <20 /HPF (<20); Urine Bilirubin NEGATIVE (Negative); Urine Blood Negative (Negative); Urine Clarity Turbid (Clear); Urine Color Yellow (Yellow); Urine Culture Reflex Order NOT NEEDED; Urine Glucose NEGATIVE (Negative); Urine Ketones TRACE (Negative); Urine Microscopic Reflex YN ORDER UMIC; Urine Nitrite NEGATIVE (Negative); Urine Protein TRACE (Negative); Urine RBC <5 /HPF (None Seen); Urine Urobilinogen Normal (Normal); Urine WBC <5 /HPF (<5)
[2024-08-10 08:40] LABS: PT Prothrombin Time 12.1 SECONDS (9.4-12.5); PTT, Activated Partial Thromb 31.2 SECONDS (24.3-36.9); Protime INR 1.15
--- NOTE | 2024-08-10 08:53 | CON ---
Date of Consultation: 08/10/2024 Reason For Consultation: Left hip pain. History Of Present Illness: Lazaro is a 34-year-old male, who presented to the ER after sustaining a fall onto his left side with subsequent pain. He was brought into the emergency room on Wednesday and had x-rays, which were negative for any fracture or dislocation. He was unable to ambulate and brou ght in again last night and had a CAT scan that did demonstrate a left subcapital femoral neck fractu re. The patient does not use a cane or walker and mobilizes without assist devices normally. The pa ana does have a history of mental retardation, seizure disorder, and bipolar disorder. Denies any other musculoskeletal complaints at this time. Review of Systems: As above, otherwise negative. Past Medical History: Includes mental retardation, bipolar disorder, epilepsy. Past Surgical History: Includes right hip surgery, inguinal hernia repair. Medications: Depakote, Ativan, Risperdal, Tegretol, Tessalon Perles. Family History: Reviewed and noncontributory. Social History: Denies tobacco, alcohol, or drug use. Lives at home. Allergies: NO KNOWN DRUG ALLERGIES. Physical Examination: General: No apparent distress. HEENT: Normocephalic, atraumatic. Neck: Supple. Cardiovascular: Brisk cap refill to all digits. Chest: Nonlabored breathing. Abdomen: Nondistended. Psychiatric: The patient is nonverbal. Musculoskeletal: No pain with range of motion of his bilateral upper extremities. Right lower extre mity, functional range of motion without pain. No gross deformities. No obvious dislocations. Left lower extremity, pain with range of motion of left hip. Moves toes grossly, however, does not follo w commands for sensation exam. Diagnostic Studies: X-rays and CAT scan demonstrate a nondisplaced left femoral neck fracture. Assessment And Plan: Lazaro is a 34-year-old male with a left femoral neck fracture. I discussed w ith the patient and his family at length the diagnosis as well as treatment plan. Given the fracture pattern, we will proceed with closed reduction, percutaneous screw fixation of his left femoral neck fracture. Risks and benefits associated with the procedure were discussed with the patient and his family at length and they expressed understanding. We will proceed with surgery later today. The gentry perez will remain n.p.o. CV/MODL Voice ID: [id number] Report ID: [id number]
[2024-08-10] MEDS: NA CHLORIDE 0.9% 100 ML ONE (09:17)
[2024-08-10] MEDS ORDERED: NA CHLORIDE 0.9% 250 ML IV PRN (09:33)
[2024-08-10 09:39] LABS: Blood Morphology Comment NOT SEEN (NOT SEEN); Platelet Estimate DECR; Platelets Clumped FEW; White Blood Cell Scan OK (OK)
[2024-08-10] MEDS: FENTANYL CITR 100 MCG/2 ML IV ONE (10:00)
[2024-08-10] MEDS: carBAMazepine 200 MG TAB PO SCH (10:10)
[2024-08-10] MEDS: ACETAMINOPHEN 500 MG TAB PO PRN (10:11)
[2024-08-10] MEDS: MIDODRINE HCL 5 MG TABLET PO PRN (10:14)
[2024-08-10] MEDS: Ringers Lactate 1,000 ML IV ONE (13:20)
[2024-08-10] MEDS ORDERED: propofoL 200 MG/20 ML VIAL IV ONE (14:00)
[2024-08-10] MEDS ORDERED: FENTANYL CITR 250 MCG/5 ML ONE (14:01)
[2024-08-10] MEDS ORDERED: MIDAZOLAM HCL 2 MG/2 ML INJ ONE (14:01)
[2024-08-10] MEDS ORDERED: LIDOCAINE 2% MPF 5 ML VIAL ONE (14:05)
[2024-08-10] MEDS: FAMOTIDINE 20 MG/2 ML VIAL IV ONE (14:15)
[2024-08-10] MEDS: SUCCINYLCHOLINE 20 MG/ML (10 ML) IV ONE (14:15)
[2024-08-10] MEDS ORDERED: FENTANYL CITR 100 MCG/2 ML ONE (14:16)
[2024-08-10] MEDS ORDERED: EPHEDRINE SULF 50 MG/ML VIAL ONE (14:40)
[2024-08-10] MEDS: CEFAZOLIN SODIUM 1 GM/VIAL ONE (14:51)
[2024-08-10] MEDS ORDERED: ONDANSETRON 4 MG/2 ML VIAL ONE (15:13)
[2024-08-10] MEDS ORDERED: dexAMETHasone 4 MG/ML VIAL ONE (15:14)
--- NOTE | 2024-08-10 16:21 | P.BOP ---
Preoperative diagnosis: Left femoral neck fracture Postoperative diagnosis: same Primary procedure: Closed reduction percutaneous screws fixation of left femoral neck fracture Sweat Band Separator: NONE,NONE Estimated blood loss: 10 cc Specimen: None Findings: See dictation Anesthesia: General Complications: None Implants: 6.5 mm short threaded cannulated screws x 3 Fluids & blood products: Per anesthesia record Transferred to: Recovery Room Condition: Good
[2024-08-10 16:30] VITALS: O2SAT 99
--- NOTE | 2024-08-10 16:51 | P.PN ---
Date of Service: 08/10/24 subjective N.p.o. for surgery to eval today, facial grimace with pain, fentanyl 12.5 x1 ordered Review of Systems 10-point ROS is otherwise unremarkable Physical Examination - Physical Exam vital signs Reviewed General: Alert, Oriented x3, Other (Aphasia/nonverbal from mental retardation) HEENT: Atraumatic, Normocephalic, Other (Large overbite) Neck: Supple, 2+ carotid pulse no bruit Respiratory: Clear to auscultation bilaterally, Normal air movement Cardiovascular: Normal pulses, Regular rate/rhythm, Normal S1 S2 Capillary refill: <2 Seconds Gastrointestinal: Normal bowel sounds, Soft and benign Musculoskeletal: Scoliosis, Other (Left lower extremity pain with range of motion) Integumentary: No breakdown, No significant lesion Neurological: Other (Mental retardation at baseline), Abnormal gait, Abnormal speech, Abnormal strength Assessment and Plan - Problems (Diagnosis) (1) Closed subcapital fracture of left femur Current Visit: Yes Status: Acute (2) Fall Current Visit: Yes Status: Acute (3) Fecal impaction in rectum Current Visit: Yes Status: Acute (4) Epilepsy Current Visit: No Status: Chronic Qualifiers: Epilepsy type: unspecified Intractability: not intractable Status epilepticus: without status epilepticus Qualified Code(s): G40.909 - Epilepsy, unspecified, not intractable, without status epilepticus (5) Osteopenia Current Visit: Yes Status: Acute (6) Mentally disabled Current Visit: No Status: Chronic - Plan Left femur fracture Fall Admit to [facility] to consult, n.p.o. after midnight As needed analgesics, PT eval in the [employer] youth services librarian for discharge planning for home health SCDs Foot x-ray diffuse osteopenia no fracture Pelvic CT Subcapital fracture proximal left femur with mild impaction. Significant osteopenia. Marked fecal impaction in the rectum. Constipation Stool softeners added Fleets enema ordered x 1 Epilepsy Mental retardation Resume appropriate home meds, fall precaution Seizure precautions Microcytic anemia Trend H&H Transfuse less than 8 Full code DVT per surgery Diet regular Disposition Home with home health Discharge Plan: Home - Advance Directives Does patient have a Living Will: No Does patient have a Durable POA for Healthcare: No - Code Status/Comfort Care Code Status: Full Code Critical Care: No Time Spent Managing Pts Care (In Minutes): 55
[2024-08-10 17:09] LABS: Hematocrit 35.6 % (39.6-49.0); Hemoglobin 12.2 g/dL (13.6-17.9)
--- NOTE | 2024-08-10 17:59 | RAD REPORT ---
EXAM: Fluoroscopy use, Hip in OR Left 2 View HISTORY: [facility] MAIN LEFT HIP PINNING COMPARISON: None FINDINGS: A total of 5 images were sent to PACS, during a fluoroscopically guided left hip pinning. N o radiologist was involved in protocoling or performance of the study, and no radiologist was present for the duration of the procedure. No interpretation of the saved images will be provided. Total fluoroscopy time: 0.8 minutes. IMPRESSION: Documentation of fluoroscopy use as above.
--- NOTE | 2024-08-10 18:04 | RAD REPORT ---
EXAMINATION: Hip Left 2 View CLINICAL INDICATION: Male, 34 years old. [facility] MAIN postop TECHNIQUE: 2 view radiograph of the left hip were obtained. COMPARISON: Pelvis and femur radiographs 08/07/2024. 08/09/[address] FINDINGS: Interval pinning of known impacted left femoral neck fracture with 3 cannulated screws. Ali gnment is satisfactory. Adjacent postsurgical soft tissue changes and skin katia. No evidence of arthropathy or other focal bone lesion. IMPRESSION: Left femoral neck pinning hardware in satisfactory alignment.
[2024-08-10] MEDS: CEFAZOLIN 1 GM in NA CHLORIDE 0.9% 50 ML IVPB SCH (18:34)
[2024-08-10] MEDS: DIVALPROEX DR 500MG TAB PO SCH (20:34)
[2024-08-10] MEDS: CODEINE 30MG/APAP 300MG TAB PO PRN (20:35)
[2024-08-10] MEDS: ENSURE SURGERY 237 ML CAN PO SCH (21:00)
[2024-08-11 07:22] LABS: Absolute Lymphocytes (CBC) 1.3 K/uL (0.7-4.9); Absolute Monocytes 0.7 K/uL (0.1-1.3); Absolute Neutrophil 3.3 K/uL (1.8-8.0); Basophils % 0.1 % (0-1.3); Eosinophils % 0.3 % (0-4.4); Hematocrit 31.9 % (39.6-49.0); Hemoglobin 11.2 g/dL (13.6-17.9); Lymphocytes % 24.5 % (15.3-44.8); MCH 35.3 pg (27.0-35.0); MCHC 35.2 g/dL (32.0-36.0); MCV 100.6 fL (80-100); Neutrophils % 62.1 % (41.7-73.7); Platelets 89 thou/uL (152-406); RBC Red Blood Cell Count 3.18 M/uL (4.33-5.43); Red Cell Distribution Width 12.8 % (12.1-15.2)
[2024-08-11 07:29] LABS: AST/SGOT 12 U/L (15-37); Albumin 2.8 g/dL (3.4-5.0); Albumin/Globulin Ratio 0.7 (1.1-1.8); Alkaline Phosphatase 51 U/L (45-117); Anion Gap 10.3 mEq/L (5.0-15.0); BUN Blood Urea Nitrogen 14 mg/dL (7-18); Bicarbonate 26 mEq/L (21-32); Bilirubin Total 0.3 mg/dL (0.2-1.0); Globulin 4.1 g/dL (2.3-3.5); Glomerular Filtration Rate 134 ml/min (=/>90); Glucose Level 93 mg/dL (74-106); Magnesium 1.7 mg/dL (1.6-2.4); Phosphorus 4.1 mg/dL (2.5-4.9); Potassium 3.3 mEq/L (3.5-5.1); Protein, Total 6.9 g/dL (6.4-8.2); Sodium Level 140 mEq/L (136-145)
[2024-08-11 07:30] LABS: ALT/SGPT < 14 U/L (16-61)
[2024-08-11] MEDS: NA CHLORIDE 0.9% 500 ML IV ONE (08:20)
[2024-08-11] MEDS: RISPERIDONE 1 MG TABLET PO SCH (08:21)
[2024-08-11] MEDS: ENOXAPARIN 40 MG/0.4 ML SQ SCH (08:21)
[2024-08-11 10:35] VITALS: BP 95/64; TEMP 98
[2024-08-11] MEDS: POTASSIUM 25 MEQ EFFERV TAB PO ONE (12:33)
--- NOTE | 2024-08-11 12:57 | P.PN ---
Subjective Date of Service: 08/11/24 Chief Complaint: Left hip fracture Subjective: Working w/ PT Patient working with PT today; parents report that he is not eating well Physical Examination - Vital Signs Temperature: 98 F Blood Pressure: 95/64 Pulse: 68 Respirations: 14 Pulse Ox (%): 99 - Physical Exam General: In no apparent distress Musculoskeletal: Other (Left lower extremity: Dressed female with some sanguinous drainage; moves toes grossly; brisk cap refill distally) Assessment And Plan - Plan Lazaro is a 34-year-old male status post CRPP of his left femoral neck fracture postoperative day #1 -PT to mobilize; touchdown weightbearing left lower extremity -Lovenox for DVT prophylaxis -May be discharged home with home health care PT when deemed stable by medicine team and physical therapy -Follow-up with Dr. Fox in 2 weeks for staple removal
--- NOTE | 2024-08-11 17:28 | P.DS ---
Admission Date: 08/10/24 Discharge Date: 08/11/24 Disposition: ROUTINE DISCHARGE Discharge Condition: GOOD Reason for Admission: Left hip fracture Brief History of Present Illness: 34-year-old male with a past medical history of mental retardation, seizure disorder, bipolar, presents to the emergency room with left leg pain. Family is primary historian reports patient fell on Wednesday reported left leg pain that is progressively worse. patient ambulates independent as baseline. Unable to ambulate since Wednesday. Pain worse with range of motion. Family reports patient had a fall from a seizure on Wednesday landed on left hip, he had a toy car in his pocket. No reported shortness of breath, chest pain, abdominal pain, dizziness. Family reports fall in 2020 with a right hip fracture. Reports patient has a history of anxiety, he does not like hospitals. Family reported after last hip fracture repair, patient lost 10 pounds due to not eating. Family request patient discharge after surgery tomorrow with home health with PT. Patient has no DME at home. new client banking services clerk consulted for home health, at discharge. PT demetrice ordered for postop ambulation, DME. Dr. Fox consulted for Ortho for left hip fracture. - Physical Exam General: Alert, Oriented x3, Other (Aphasia from mental retardation) HEENT: Atraumatic, Normocephalic, Other (Large overbite) Neck: Supple, 2+ carotid pulse no bruit Respiratory: Clear to auscultation bilaterally, Normal air movement Cardiovascular: Normal pulses, Regular rate/rhythm, Normal S1 S2 Capillary refill: <2 Seconds Gastrointestinal: Normal bowel sounds, Soft and benign Musculoskeletal: Scoliosis, Other (Left lower extremity pain with range of motion) Integumentary: No breakdown, No significant lesion Neurological: Other (Mental retardation at baseline), Abnormal gait, Abnormal speech, Abnormal strength Hospital Course: 34-year-old male with a past medical history of mental retardation, seizure disorder, bipolar, presents to the emergency room with left leg pain. Family is primary historian reports patient fell on Wednesday reported left leg pain that is progressively worse. patient ambulates independent as baseline. Unable to ambulate since Wednesday. Pain worse with range of motion. Family reports patient had a fall from a seizure on Wednesday landed on left hip, he had a toy car in his pocket. No reported shortness of breath, chest pain, abdominal pain, dizziness. Family reports fall in 2020 with a right hip fracture. Reports patient has a history of anxiety, he does not like hospitals. Family reported after last hip fracture repair, patient lost 10 pounds due to not eating. Family request patient discharge after surgery tomorrow with home health with PT. Patient has no DME at home. new client banking services clerk consulted for home health, at discharge. PT demetrice ordered for postop ambulation, DME. Dr. Fox consulted for Ortho for left hip fracture. He is status post 08/10/24 Closed reduction percutaneous screws fixation of left femoral neck fracture Dr. Fox, follow-up with Dr. Fox in discharge, call office Wednesday for an appointment, Mr Babcock is not eating while in the hospital, family wishes to discharge home where patient can eat. Discharged home on Tylenol 3 for pain, Dulcolax daily as needed constipation Anticoagulation take as directed, Eliquis 2.5 twice daily for 30 days Follow-up with Dr. Fox on Wednesday, call office for appointment -Home health physical therapy was not arranged prior to discharge due to Medicaid, patient is a touchdown weightbearing, due to unable to follow commands, family was taught transfer training from bed to wheelchair prior to discharge by PT. Assessment (1) Closed subcapital fracture of left femur-status post 08/10/24 Closed reduction percutaneous screws fixation of left femoral neck fracture Dr. Fox, follow-up with Dr. Fox in discharge, call office Wednesday for an appointment (2) Fall -fall precaution touchdown weightbearing left lower extremity,, family taught how to do wheelchair transfers for patient until home health is arranged. (3) Fecal impaction in rectum (4) Epilepsy-resume home medication (5) Osteopenia (6) Mentally disabled (7) hypotension, midodrine for systolic blood pressure less than 90 GOAL: Clear understanding of disease process INSTRUCTIONS: Physician Discharge Instructions: -Follow-up with Dr. Fox after discharge -Follow-up with PCP in 1 to 2 weeks -Please call Dr. Chew at [phone] if any questions regarding hospital stay -Please call nursing station at [phone] if any nursing or medication questions -Return to the emergency room if symptoms worsen Diet: ADA, low sodium Activity: Fall precautions Vital Signs/Physical Exam: Temp Pulse Resp BP Pulse Ox 98 F 68 16 95/64 99 01/24/25 12:57 08/11/24 12:57 08/11/24 13:33 08/11/24 12:57 08/11/24 12:57 Laboratory Data at Discharge: WBC 5.30 thou/uL (4.3-10.9) 08/11/24 06:19 Hgb 11.2 g/dL (13.6-17.9) L D 08/11/24 06:19 Hct 31.9 % (39.6-49.0) L 08/11/24 06:19 Plt Count 89 thou/uL (152-406) L 08/11/24 06:19 PT 12.1 SECONDS (9.4-12.5) 08/10/24 08:18 INR 1.15 08/10/24 08:18 APTT 31.2 SECONDS (24.3-36.9) 08/10/24 08:18 Sodium 140 mEq/L (136-145) 08/11/24 06:19 Potassium 3.3 mEq/L (3.5-5.1) L 08/11/24 11:56 BUN 14 mg/dL (7-18) 08/11/24 06:19 Creatinine 0.55 mg/dL (0.70-1.30) L 08/11/24 06:19 Glucose 93 mg/dL (74-106) 08/11/24 06:19 Phosphorus 4.1 mg/dL (2.5-4.9) 08/11/24 06:19 Magnesium 1.7 mg/dL (1.6-2.4) 08/11/24 06:19 Total Bilirubin 0.3 mg/dL (0.2-1.0) 08/11/24 06:19 AST 12 U/L (15-37) L 08/11/24 06:19 ALT < 14 U/L (16-61) L 08/11/24 06:19 Alkaline Phosphatase 51 U/L (45-117) 08/11/24 06:19 Home Medications: Divalproex Sodium [Depakote] 1,500 mg PO BEDTIME 10/09/22 Risperidone [Risperdal] 1 tab PO BID 10/09/22 carBAMazepine [Tegretol*] 400 mg PO BID 10/09/22 Apixaban [Eliquis] 2.5 mg PO BID 21 Days #42 tablet 08/11/24 Codeine/APAP [Tylenol #3*] 1 tab PO Q4H PRN 10 Days #15 tab 08/11/24 Midodrine HCl [Proamatine*] 10 mg PO TID PRN 15 Days #20 tab 08/11/24 Nut.tx.comp. Immune Systm,Reg [Ensure Surgery] 237 ml PO BID can 08/11/24 bisacodyL [Dulcolax*] 5 mg PO DAILY 30 Days #30 tab 08/11/24 New Medications: bisacodyL [Dulcolax*] 5 mg PO DAILY 30 Days #30 tab Apixaban [Eliquis] 2.5 mg PO BID 21 Days #42 tablet Midodrine HCl [Proamatine*] 10 mg PO TID PRN 15 Days #20 tab PRN Reason: SBP<100 Codeine/APAP [Tylenol #3*] 1 tab PO Q4H PRN 10 Days #15 tab PRN Reason: Pain Scale 5-7 (Moderate) Physician Discharge Instructions: 34-year-old male with a past medical history of mental retardation, seizure dis order, bipolar, presents to the emergency room with left leg pain. Family is primary historian reports patient fell on Wednesday reported left leg pain that is progressively worse. patient ambulates independent as baseline. Unable to ambulate since Wednesday. Pain worse with range of motion. Family reports patient had a fall from a seizure on Wednesday landed on left hip, he had a toy car in his pocket. No reported shortness of breath, chest pain, abdominal pain, dizziness. Family reports fall in 2020 with a right hip fracture. Reports patient has a history of anxiety, he does not like hospitals. Family reported after last hip fracture repair, patient lost 10 pounds due to not eating. Family request patient discharge after surgery tomorrow with home health with PT. Patient has no DME at home. new client banking services clerk consulted for home health, at discharge. PT demetrice ordered for postop ambulation, DME. Dr. Fox consulted for Ortho for left hip fracture. He is status post 08/10/24 Closed reduction percutaneous screws fixation of left femoral neck fracture Dr. Fox, follow-up with Dr. Fox in discharge, call office Wednesday for an appointment, Mr Babcock is not eating while in the hospital, family wishes to discharge home where patient can eat. Discharged home on Tylenol 3 for pain, Dulcolax daily as needed constipation Anticoagulation take as directed,Anticoagulation take as directed, Eliquis 2.5 twice daily for 21 days Follow-up with Dr. Fox on Wednesday, call office for appointment -Home health physical therapy was not arranged prior to discharge due to Med icaid, patient is a touchdown weightbearing, due to unable to follow commands, family was taught transfer training from bed to wheelchair prior to discharge by PT. Assessment (1) Closed subcapital fracture of left femur-status post 08/10/24 Closed reduction percutaneous screws fixation of left femoral neck fracture Dr. Fox, follow-up with Dr. Fox in discharge, call office Wednesday for an appointment (2) Fall -fall precaution touchdown weightbearing left lower extremity,, family taught how to do wheelchair transfers for patient until home health is arranged. (3) Fecal impaction in rectum (4) Epilepsy-resume home medication (5) Osteopenia (6) Mentally disabled (7) hypotension, midodrine for systolic blood pressure less than 90 GOAL: Clear understanding of disease process INSTRUCTIONS: Physician Discharge Instructions: -Follow-up with Dr. Fox after discharge -Follow-up with PCP in 1 to 2 weeks -Please call Dr. Chew at [phone] if any questions regarding hospital stay -Please call nursing station at [phone] if any nursing or medication questions -Return to the emergency room if symptoms worsen Diet: ADA, low sodium Activity: Fall precautions Diet: Regular Followup: Celestino Rascon MD [Primary Care Provider] - Noel Fox MD [ACTIVE - CAN ADMIT] - Time spent managing pt's care (in minutes): 45
[2024-08-11] MEDS: carBAMazepine 200 MG TAB PO SCH (18:00)
[2024-08-11] MEDS: BISACODYL E.C. 5 MG TAB PO ONE (18:27)
[2024-08-11] MEDS ORDERED: DIVALPROEX DR 500MG TAB PO SCH (20:00)
--- NOTE | 2024-08-18 10:37 | P.OP ---
Preoperative diagnosis: left femoral neck fracture Postoperative diagnosis: same Primary procedure: Closed reduction percutaneous screws fixation of left femoral neck fracture Anesthesia: general Estimated blood loss: 10 cc Specimen: none Findings: See dictation Operative Technique: Indications For Procedure: Lazaro is a 34-year-old male, presented to the ER after sustaining a fall with subsequent left hip pain and inability to bear weight. X-ray findings, CT scan, as well as physical exam findings are consistent with a left nondisplaced femoral neck fracture. After discussion with the patient and his family, risks and benefits associated with operative and nonoperative treatment, they expressed understanding and elected to proceed with operative treatment. Description Of Procedure: After informed consent was obtained, the patient was identified in the preoperative holding area. The left lower extremity was marked. Patient was brought back to operating room and placed gently on the operating table and placed under general LMA anesthesia. The right and left lower extremities were then well padded and placed in the fracture boots on the fracture table and left lower extremity was placed in traction. Fluoroscopy was then used to evaluate the fracture, to assess if indeed the fracture was amenable to screw fixation. Preoperative fluoroscopy demonstrated overall good alignment of the femoral neck in both coronal and sagittal planes. At this point, I elected to proceed with percutaneous screw fixation. The left lower extremity was then prepped and draped in the usual sterile fashion. A time out was initiated. The correct patient and procedure were confirmed and identified. The patient did receive a preoperative prophylactic antibiotic. Again, using fluoroscopy location of the inferior central screw was found and using the trajectory a 1 cm incision was made over the lateral thigh. Guide pin was then placed. Under fluoroscopic guidance the pin was placed on the lateral portion of the proximal femur ensuring proper trajectory into the proper location of the inferior pin position. Pin was then placed within the proximal femur into the femoral head, and again proper placement of the pin was verified in both the coronal and sagittal planes. Next, pin was then placed in the superoanterior position ensuring that we would obtain reverse triangle screw configuration. The pin was placed within the proximal femur over the femoral neck and the femoral head into the subchondral bone, again, using fluoroscopic guidance in both coronal and sagittal planes. The superoposterior pin was then placed, again under fluoroscopic guidance in both coronal and sagittal planes, into the subchondral bone. The pins were then measured and the outer cortex was then opened using a cannulated drill bit. Three 6.5 cannulated screws were then placed in sequential fashion near the cortex and each one tightened to ensure equal compression at all screw sites. Fluoroscopy was then used to ensure proper positioning and length of screws was verified. The wound was then irrigated thoroughly with normal saline. Subcutaneous tissue was approximated using a 2-0 Vicryl. Skin was approximated using katia. Sterile dressings were then applied. The patient was then awakened and extubated and transferred to the PACU in stable condition. Postoperative Plan: We will have the patient work with physical therapy to aid with mobilization. He will be touch down weightbearing on the left lower extremity. Internal Medicine will continue to monitor the patient medically. Complications: None Implants: 3- 6.5 mm cannulated screws Fluids & blood products: per anesthesia record Transferred to: Recovery Room Condition: Good
== END 2024-08-11 18:50 | disposition home health service (06) | DRG 308 ==
LOC: ER 14:17 → ERHOLD 16:59 → 2ND 20:13 → OBSVTOIN 08-10 11:35
PROVIDERS: ADMIT Hospitalist; ATTEND Hospitalist
PROC: 0QS734Z Reposition Left Upper Femur with Internal Fixation Device, Percutaneous Approach (ICD-10-PCS; principal; 2024-08-10 14:30)
DX: S72.012A Unspecified intracapsular fracture of left femur, initial encounter for closed fracture (principal); F79 Unspecified intellectual disabilities; F31.9 Bipolar disorder, unspecified; K56.41 Fecal impaction; I95.9 Hypotension, unspecified; D50.9 Iron deficiency anemia, unspecified; M85.80 Other specified disorders of bone density and structure, unspecified site; G40.909 Epilepsy, unspecified, not intractable, without status epilepticus; R47.01 Aphasia; Z79.01 Long term (current) use of anticoagulants; Z79.899 Other long term (current) drug therapy; W18.30XA Fall on same level, unspecified, initial encounter; Y93.9 Activity, unspecified; Y92.019 Unspecified place in single-family (private) house as the place of occurrence of the external cause; Y99.9 Unspecified external cause status
CPT/HCPCS: 36415; 72192; 80048; 80053; 81001; 83735; 84100; 84132; 85014; 85018; 85025; 85610; 85730; 97110; 97161; 97530; 99285; G0378; J0690; J1100; J1650; J2003; J2250; J2270; J2405; J2704; J3010; J3480; J7040; J7050; J7120